=== PATIENT | female | born 1960 | race Caucasian/White ===

== ENCOUNTER 2018-09-01 23:49 | Inpatient (IN) | payer MEDICAID ==
[~2018-09-01] VITALS: Ht 154.9 cm; Wt 73.9 kg
[2018-09-02] MEDS ORDERED: SODIUM CHLORIDE 0.9% 1,000 ML IV ONE (01:36)
[2018-09-02] MEDS ORDERED: FAMOTIDINE 20MG/2ML VIAL IV STA (01:36)
[2018-09-02] MEDS ORDERED: ONDANSETRON HCL 4MG/2ML INJ IV STA (01:36)
[2018-09-02] MEDS ORDERED: MORPHINE SULFATE 4 MG/ML CPJ (NOT FOR IM USE) IV STA (01:36)
[2018-09-02 01:52] LABS: BASOPHILS % 0.9 % (0.0-2.0); EOSINOPHILS % 4.2 % (0.0-5.0); HEMATOCRIT. 36.8 % (36.0-48.0); HEMOGLOBIN. 12.5 g/dL (12.0-16.0); LYMPHOCYTES % 19.8 % (20.0-50.0); MEAN CORPUSCULAR HEMOGLOBIN 31.2 pg (28.0-32.0); MEAN CORPUSCULAR VOLUME 91.4 fL (81.0-99.0); MEAN PLATELET VOLUME 8.4 fl (7.4-10.4); MONOCYTES % 8.6 % (2.0-8.0); NEUTROPHILS % 66.5 % (40.0-76.0); PLATELET 235 x1000/uL (130-400); RED BLOOD CELL COUNT 4.02 mill/uL (4.2-5.4); RED CELL DISTRIBUTION WIDTH 14.2 % (11.6-14.6)
[2018-09-02 02:00] LABS: CHLORIDE 110 mEq/L (98-107)
[2018-09-02] MEDS ORDERED: LEVOFLOXACIN 750MG PREMIX 150 ML IV ONE (03:15)
[2018-09-02] MEDS ORDERED: KETOROLAC 15MG/ML VIAL IV ONE (04:30)
[2018-09-02] MEDS ORDERED: ONDANSETRON HCL 4MG/2ML INJ IV ONE (07:15)
[2018-09-02] MEDS ORDERED: MORPHINE SULFATE 4 MG/ML CPJ (NOT FOR IM USE) IV ONE (07:15)
[2018-09-02 08:10] VITALS: BP 124/53
[2018-09-02 08:20] VITALS: BP 124/53
[2018-09-02] MEDS ORDERED: PNEUMOCOCCAL 23-VAL P-SAC VAC 0.5 ML IM ONE (10:30)
[2018-09-02] MEDS ORDERED: CLONIDINE 0.1MG TABLET PO PRN (11:30)
[2018-09-02] MEDS ORDERED: DOCUSATE SODIUM 100MG CAPSULE PO PRN (11:30)
[2018-09-02] MEDS ORDERED: ACETAMINOPHEN 325MG TABLET PO PRN (11:30)
[2018-09-02] MEDS ORDERED: IPRATROPIUM/ALBUTEROL 0.5-3(2.5)MG/3ML NEB INH PRN (11:30)
[2018-09-02] MEDS ORDERED: ONDANSETRON HCL 4MG/2ML INJ IV PRN (11:30)
[2018-09-02] MEDS ORDERED: LORAZEPAM 0.5MG TABLET PO PRN (11:30)
[2018-09-02 12:00] VITALS: BP 128/62
[2018-09-02] MEDS: AZITHROMYCIN 500 MG in DEXT 5% WATER 250 ML IV SCH (14:03)
[2018-09-02] MEDS: SODIUM CHLORIDE 0.9% 1,000 ML IV SCH (14:03)
[2018-09-02 15:16] LABS: HCG SCREEN NEGATIVE
[2018-09-02 16:00] VITALS: BP 135/92
[2018-09-02] MEDS ORDERED: BENZONATATE 100MG CAPSULE PO PRN (17:15)
[2018-09-02] MEDS: HYDROCODONE/ACETAMINOPHEN 5/325MG TABLET PO PRN ×2 (18:36→22:59)
[2018-09-02 18:58] LABS: *AMPHETAMINES SCREEN URINE NEGATIVE (NEGATIVE); *BARBITURATES SCREEN URINE NEGATIVE (NEGATIVE); *BENZODIAZEPINES SCREEN URINE NEGATIVE (NEGATIVE); *COCAINE SCREEN URINE NEGATIVE (NEGATIVE); METHADONE URINE SCREEN NEGATIVE (NEGATIVE); OPIATES URINE SCREEN PRESUMTIVE POSITIVE (NEGATIVE)
[2018-09-02 18:59] LABS: CANNABINOID URINE SCREEN NEGATIVE (NEGATIVE); PHENCYCLIDINE URINE SCREEN NEGATIVE (NEGATIVE)
[2018-09-02 20:00] VITALS: BP 127/58
[2018-09-02 22:50] LABS: CLARITY URINE CLEAR (CLEAR); COLOR URINE YELLOW (YELLOW); KETONES URINE NEGATIVE (NEGATIVE); LEUKOCYTE ESTERASE URINE NEGATIVE (NEGATIVE); NITRITE URINE NEGATIVE (NEGATIVE); OCCULT BLOOD URINE NEGATIVE (NEGATIVE); PH URINE 5.5 (4.5-8.0); PROTEIN URINE NEGATIVE (NEGATIVE); SPECIFIC GRAVITY URINE 1.009 (1.005-1.030); UROBILINOGEN URINE 0.2 E.U./dL (0.2-1.0)
[2018-09-03] VITALS: BP 119/61
[2018-09-03 04:00] VITALS: BP 124/68
[2018-09-03] MEDS: SODIUM CHLORIDE 0.9% 1,000 ML IV SCH ×2 (06:24→21:39)
[2018-09-03] MEDS: HYDROCODONE/ACETAMINOPHEN 5/325MG TABLET PO PRN ×4 (06:56→23:41)
[2018-09-03 07:13] LABS: BASOPHILS % 0.8 % (0.0-2.0); EOSINOPHILS % 3.1 % (0.0-5.0); HEMATOCRIT. 35.6 % (36.0-48.0); LYMPHOCYTES % 18.6 % (20.0-50.0); MEAN CORPUSCULAR HEMOGLOBIN 30.7 pg (28.0-32.0); MEAN CORPUSCULAR VOLUME 91.2 fL (81.0-99.0); MEAN PLATELET VOLUME 8.7 fl (7.4-10.4); MONOCYTES % 8.5 % (2.0-8.0); PLATELET 215 x1000/uL (130-400); RED CELL DISTRIBUTION WIDTH 13.9 % (11.6-14.6)
[2018-09-03 07:19] LABS: CHLORIDE 112 mEq/L (98-107)
[2018-09-03 08:00] VITALS: BP 114/54
[2018-09-03 11:44] VITALS: BP 123/57
[2018-09-03] MEDS: AZITHROMYCIN 500 MG in DEXT 5% WATER 250 ML IV SCH (13:06)
[2018-09-03 16:17] VITALS: BP 120/46
[2018-09-03 20:00] VITALS: BP_SYST 131; BP_SYST 133; BP_DIAS 57; BP_DIAS 58
[2018-09-03] MEDS: MORPHINE SULFATE 2 MG/ML CPJ (NOT FOR IM USE) IV PRN (21:33)
[2018-09-04] VITALS: BP_SYST 127; BP_SYST 134; BP_DIAS 56
[2018-09-04] MEDS: SODIUM CHLORIDE 0.9% 1,000 ML IV SCH ×2 (02:39→14:31)
[2018-09-04] MEDS: HYDROCODONE/ACETAMINOPHEN 5/325MG TABLET PO PRN ×4 (03:54→23:44)
[2018-09-04 04:00] VITALS: BP_SYST 103; BP_SYST 112; BP_DIAS 44; BP_DIAS 51
[2018-09-04 06:12] LABS: BASOPHILS % 0.6 % (0.0-2.0); EOSINOPHILS % 3.1 % (0.0-5.0); HEMATOCRIT. 32.8 % (36.0-48.0); HEMOGLOBIN. 11.2 g/dL (12.0-16.0); LYMPHOCYTES % 19.6 % (20.0-50.0); MEAN CORPUSCULAR VOLUME 90.7 fL (81.0-99.0); MEAN PLATELET VOLUME 8.8 fl (7.4-10.4); MONOCYTES % 9.1 % (2.0-8.0); NEUTROPHILS % 67.6 % (40.0-76.0); PLATELET 202 x1000/uL (130-400); RED BLOOD CELL COUNT 3.62 mill/uL (4.2-5.4); RED CELL DISTRIBUTION WIDTH 13.8 % (11.6-14.6)
[2018-09-04 06:20] LABS: CHLORIDE 111 mEq/L (98-107)
[2018-09-04] MEDS: MORPHINE SULFATE 2 MG/ML CPJ (NOT FOR IM USE) IV PRN (07:57)
[2018-09-04 08:07] VITALS: BP 123/48
[2018-09-04 11:27] VITALS: BP 121/51
[2018-09-04] MEDS: AZITHROMYCIN 500 MG in DEXT 5% WATER 250 ML IV SCH (14:32)
[2018-09-04] MEDS: IBUPROFEN 600MG TABLET PO SCH ×2 (14:32→21:17)
[2018-09-04 15:06] LABS: QFT MITOGEN VALUE >10.00 IU/mL (.); QFT TB GOLD PLUS Positive (Negative); QFT TB1 AG VALUE 0.63 IU/mL (.)
[2018-09-04 16:27] VITALS: BP 114/49
[2018-09-04 20:00] VITALS: BP 133/57
[2018-09-05] VITALS: BP 116/59
[2018-09-05] MEDS: SODIUM CHLORIDE 0.9% 1,000 ML IV SCH ×2 (01:20→17:15)
[2018-09-05 04:00] VITALS: BP 104/45
[2018-09-05] MEDS: IBUPROFEN 600MG TABLET PO SCH ×2 (06:12→17:06)
[2018-09-05 07:07] LABS: CHLORIDE 110 mEq/L (98-107)
[2018-09-05 07:09] LABS: BASOPHILS % 0.9 % (0.0-2.0); EOSINOPHILS % 4.8 % (0.0-5.0); HEMATOCRIT. 34.2 % (36.0-48.0); HEMOGLOBIN. 11.5 g/dL (12.0-16.0); LYMPHOCYTES % 25.9 % (20.0-50.0); MEAN CORPUSCULAR HEMOGLOBIN 30.7 pg (28.0-32.0); MEAN CORPUSCULAR VOLUME 90.9 fL (81.0-99.0); MEAN PLATELET VOLUME 8.8 fl (7.4-10.4); MONOCYTES % 10.7 % (2.0-8.0); NEUTROPHILS % 57.7 % (40.0-76.0); PLATELET 201 x1000/uL (130-400); RED BLOOD CELL COUNT 3.76 mill/uL (4.2-5.4); RED CELL DISTRIBUTION WIDTH 13.8 % (11.6-14.6)
[2018-09-05] MEDS: MORPHINE SULFATE 2 MG/ML CPJ (NOT FOR IM USE) IV PRN ×2 (07:43→16:18)
[2018-09-05 08:37] VITALS: BP 115/56
[2018-09-05] MEDS: HYDROCODONE/ACETAMINOPHEN 5/325MG TABLET PO PRN ×2 (11:45→22:23)
[2018-09-05 11:51] VITALS: BP 125/58
[2018-09-05 15:47] VITALS: BP 145/62
[2018-09-05] MEDS: AZITHROMYCIN 500 MG in DEXT 5% WATER 250 ML IV SCH (17:05)
[2018-09-05] MEDS: METHYLPREDNISOLONE SOD SUCC 40 MG/ML VIAL IV SCH (17:05)
[2018-09-05 20:00] VITALS: BP 136/62
[2018-09-06 00:39] VITALS: BP 131/66
[2018-09-06] MEDS: MORPHINE SULFATE 2 MG/ML CPJ (NOT FOR IM USE) IV PRN ×2 (02:06→10:14)
[2018-09-06 04:00] VITALS: BP 128/59
[2018-09-06] MEDS: HYDROCODONE/ACETAMINOPHEN 5/325MG TABLET PO PRN ×3 (06:20→21:54)
[2018-09-06 08:00] VITALS: BP 112/50
[2018-09-06 08:05] LABS: BASOPHILS % 0.3 % (0.0-2.0); HEMATOCRIT. 35.7 % (36.0-48.0); LYMPHOCYTES % 10.9 % (20.0-50.0); MEAN CORPUSCULAR HEMOGLOBIN 30.6 pg (28.0-32.0); MEAN CORPUSCULAR VOLUME 91.1 fL (81.0-99.0); MONOCYTES % 5.1 % (2.0-8.0); NEUTROPHILS % 83.7 % (40.0-76.0); PLATELET 227 x1000/uL (130-400); RED BLOOD CELL COUNT 3.92 mill/uL (4.2-5.4); RED CELL DISTRIBUTION WIDTH 13.9 % (11.6-14.6)
[2018-09-06] MEDS: METHYLPREDNISOLONE SOD SUCC 40 MG/ML VIAL IV SCH (08:14)
[2018-09-06] MEDS: SODIUM CHLORIDE 0.9% 1,000 ML IV SCH (08:14)
[2018-09-06 08:16] LABS: CHLORIDE 109 mEq/L (98-107)
[2018-09-06 12:00] VITALS: BP 141/64
[2018-09-06] MEDS: AZITHROMYCIN 500 MG in DEXT 5% WATER 250 ML IV SCH (15:58)
[2018-09-06 16:00] VITALS: BP 119/58
[2018-09-06 20:00] VITALS: BP 142/58
[2018-09-07] VITALS: BP 149/58
[2018-09-07 04:00] VITALS: BP 143/56
[2018-09-07] MEDS: MORPHINE SULFATE 2 MG/ML CPJ (NOT FOR IM USE) IV PRN ×2 (05:52→14:43)
[2018-09-07] MEDS: SODIUM CHLORIDE 0.9% 1,000 ML IV SCH (05:53)
[2018-09-07 07:28] LABS: BASOPHILS % 0.6 % (0.0-2.0); EOSINOPHILS % 1.4 % (0.0-5.0); HEMOGLOBIN. 12.5 g/dL (12.0-16.0); MEAN CORPUSCULAR HEMOGLOBIN 30.9 pg (28.0-32.0); MEAN CORPUSCULAR VOLUME 91.3 fL (81.0-99.0); MEAN PLATELET VOLUME 8.8 fl (7.4-10.4); MONOCYTES % 5.9 % (2.0-8.0); NEUTROPHILS % 72.1 % (40.0-76.0); PLATELET 262 x1000/uL (130-400); RED BLOOD CELL COUNT 4.05 mill/uL (4.2-5.4); RED CELL DISTRIBUTION WIDTH 14.3 % (11.6-14.6)
[2018-09-07 07:42] LABS: CHLORIDE 110 mEq/L (98-107)
[2018-09-07 08:00] VITALS: BP 139/52
[2018-09-07] MEDS: METHYLPREDNISOLONE SOD SUCC 40 MG/ML VIAL IV SCH (09:13)
[2018-09-07] MEDS: HYDROCODONE/ACETAMINOPHEN 5/325MG TABLET PO PRN (09:13)
[2018-09-07 12:00] VITALS: BP 115/43
[2018-09-07] MEDS: AZITHROMYCIN 500 MG in DEXT 5% WATER 250 ML IV SCH (13:34)
[2018-09-07] MEDS ORDERED: ACET-2178 PO (14:07)
[2018-09-07] MEDS ORDERED: HYDR-4001 MT (14:07)
[2018-09-07 16:00] VITALS: BP 146/56
[2018-09-07 16:26] VITALS: BP 146/56
== END 2018-09-07 17:20 | disposition home or self-care (01) | DRG 139 ==
LOC: ER 23:49 → 5WST 09-02 05:16 → EDBEDREQ 09-02 05:20 → EDBEDREQTM 09-02 05:20 → ENRESERV 09-02 07:13 → 5WST 09-02 08:29
PROVIDERS: ADMIT Internal Medicine; ATTEND Internal Medicine
DX: J12.9 Viral pneumonia, unspecified (principal); E87.8 Other disorders of electrolyte and fluid balance, not elsewhere classified; I50.9 Heart failure, unspecified; F17.210 Nicotine dependence, cigarettes, uncomplicated; M51.26 Other intervertebral disc displacement, lumbar region; K57.30 Diverticulosis of large intestine without perforation or abscess without bleeding; Z87.442 Personal history of urinary calculi; Z90.710 Acquired absence of both cervix and uterus; R76.11 Nonspecific reaction to tuberculin skin test without active tuberculosis; D72.821 Monocytosis (symptomatic); M51.16 Intervertebral disc disorders with radiculopathy, lumbar region; Z71.6 Tobacco abuse counseling
CPT/HCPCS: 36415; 71045; 71250; 72148; 74176; 80048; 80061; 80305; 81003; 83036; 83605; 83880; 84145; 84443; 84484; 84703; 85651; 86140; 86480; 90732; 93005; 93306; 96374; 97110; 97161; 99285; C1893; J0456; J1885; J1956; J2270; J2405; J2920; J3490; J7030; J7060